=== PATIENT | male | born 1940 | race Caucasian/White ===

== ENCOUNTER 2021-02-01 19:36 | Inpatient (IN) | payer MEDICARE ==
[~2021-02-01] VITALS: Ht 172.7 cm; Wt 111.7 kg
[2021-02-01 21:48] LABS: Basophils # (auto) 0 10 ^3/uL (0-0.2); Basophils % (auto) 0.2 % (0.0-2.0); Eosinophils # (auto) 0 10 ^3/uL (0-0.8); Hematocrit 42.1 % (41.0-53.0); Hemoglobin 14.3 g/dL (13.5-17.5); Lymphocytes # (auto) 0.8 10 ^3/uL (0.4-5.4); Lymphocytes % (auto) 5.2 % (10.0-50.0); Mean Corpuscular Hemoglobin 32.7 pg (28.0-32.0); Mean Corpuscular Volume 96.2 fL (80.0-100.0); Monocytes # (auto) 0.7 10 ^3/uL (0-1.3); Monocytes % (auto) 4.6 % (0.0-12.0); Neutrophils # (auto) 14.1 10 ^3/uL (1.6-8.6); Platelet Count (auto) 196 10^3/uL (140-450); Red Blood Cells 4.37 10^6/uL (4.5-5.90); Red Cell Distribution Width 13.4 % (11.8-14.3); White Blood Cell 15.6 10^3/uL (4.4-10.8)
[2021-02-01 22:03] LABS: Albumin 3.4 g/dL (3.4-5.0); Anion Gap 10 (5-15); Blood Urea Nitrogen 11 mg/dL (7-18); Calcium 9.1 mg/dL (8.5-10.1); Carbon Dioxide 19 mmol/L (21-32); Chloride 105 mmol/L (98-107); Glucose 161 mg/dL (74-106); Magnesium 2.2 mg/dL (1.6-2.6); Potassium 3.3 mmol/L (3.5-5.1); Sodium 134 mmol/L (136-145)
[2021-02-01 22:08] LABS: INR 1.25 (0.9-1.15); Partial Thromboplastin Time 29.9 sec (23.0-31.2)
[2021-02-01 22:10] LABS: Alanine Aminotransferase 17 U/L (16-61); Alkaline Phosphatase 55 U/L (45-117); Aspartate Aminotransferase 8 U/L (15-37); BUN/Creatinine Ratio 12.1; Bilirubin, Total 1.4 mg/dL (0.2-1.0); GFR African American 103 mL/min; GFR Non-African American 85 mL/min; Total Protein 7.1 g/dL (6.4-8.2)
[2021-02-01 23:17] LABS: Urine Bacteria NONE SEEN /hpf (None Seen); Urine Blood 2+ /uL (Negative); Urine Mucus FEW (None Seen); Urine Specific Gravity 1.011 (1.001-1.035); Urine WBC 14 /hpf (0 - 3)
[2021-02-02] MEDS ORDERED: CIPROFLOXACIN 400MG/200ML 200 ML IV ONE (01:45)
[2021-02-02] MEDS ORDERED: ONDANSETRON HCL 4 MG/2 ML VIAL IV PRN (06:45)
[2021-02-02] MEDS ORDERED: POTASSIUM CHL 20 Meq TABLET PO ONE (06:45)
[2021-02-02] MEDS ORDERED: HYDROcodone-ACET 5/325MG TAB PO PRN (06:45)
[2021-02-02] MEDS ORDERED: MORPHINE SULF INJ 2 MG/ML SYRINGE 1ML IV PRN ×2 (06:45→13:15)
[2021-02-02] MEDS ORDERED: TEMAZEPAM 15 MG CAP PO PRN (06:45)
[2021-02-02] MEDS ORDERED: NITROGLYCERIN 0.4 MG SL TAB SL PRN (06:45)
[2021-02-02] MEDS ORDERED: MORPHINE SULFATE 4 MG/ML SYR/VIAL IV PRN (06:45)
[2021-02-02] MEDS ORDERED: DOCUSATE SOD 100 MG CAP PO PRN (06:45)
[2021-02-02] MEDS ORDERED: ACETAMINOPHEN 325 MG TAB PO PRN (06:45)
[2021-02-02] MEDS: MULTIPLE VITAMIN TAB PO SCH (10:00)
[2021-02-02] MEDS: ZINC SULFATE 220mg CAP or TAB PO SCH (10:00)
[2021-02-02] MEDS: FAMOTIDINE 20 MG TAB PO SCH ×2 (10:00→21:00)
[2021-02-02] MEDS: PIPERACILLIN-TAZOB 3.375GM 100 ML IV SCH ×3 (13:26→23:18)
[2021-02-02 14:00] VITALS: BP 155/76
[2021-02-02 15:47] LABS: Basophils # (auto) 0 10 ^3/uL (0-0.2); Basophils % (auto) 0.2 % (0.0-2.0); Eosinophils # (auto) 0 10 ^3/uL (0-0.8); Hematocrit 39.4 % (41.0-53.0); Lymphocytes # (auto) 1.4 10 ^3/uL (0.4-5.4); Mean Corpuscular Hemoglobin 33.6 pg (28.0-32.0); Mean Corpuscular Hgb Conc. 35.6 g/dL (32.0-36.0); Mean Corpuscular Volume 94.4 fL (80.0-100.0); Monocytes # (auto) 1.1 10 ^3/uL (0-1.3); Monocytes % (auto) 6.9 % (0.0-12.0); Neutrophils % (auto) 83.9 % (37.0-80.0); Nucleated Red Blood Cells % 0.1 %; Platelet Count (auto) 195 10^3/uL (140-450); Red Blood Cells 4.17 10^6/uL (4.5-5.90); Red Cell Distribution Width 13.6 % (11.8-14.3); White Blood Cell 15.5 10^3/uL (4.4-10.8)
[2021-02-02 16:01] LABS: Albumin 3.1 g/dL (3.4-5.0); Calcium 9.3 mg/dL (8.5-10.1); Potassium 3.9 mmol/L (3.5-5.1)
[2021-02-02 16:04] LABS: BUN/Creatinine Ratio 15.1; Bilirubin, Total 0.8 mg/dL (0.2-1.0); Total Protein 6.8 g/dL (6.4-8.2)
[2021-02-02 16:40] VITALS: BP 154/84
[2021-02-02 17:50] VITALS: BP 154/84
[2021-02-02] MEDS ORDERED: TAMSULOSIN HYDROCHLORIDE 0.4 MG CAP PO SCH (18:00)
[2021-02-02] MEDS ORDERED: BRIN1SUS EACHEYE (18:09)
[2021-02-02] MEDS ORDERED: TIMO0.5S66 EACHEYE (18:09)
[2021-02-02] MEDS ORDERED: LOSA100T33 PO (18:09)
[2021-02-02] MEDS ORDERED: LATA0.0019 EACHEYE (18:09)
[2021-02-02] MEDS ORDERED: ROSU10TA16 PO (18:09)
[2021-02-02] MEDS ORDERED: AML5T PO (18:09)
[2021-02-02 22:00] VITALS: BP 127/66
[2021-02-03 05:00] VITALS: BP 135/69
[2021-02-03] MEDS: PIPERACILLIN-TAZOB 3.375GM 100 ML IV SCH (05:17)
[2021-02-03 06:25] LABS: Basophils # (auto) 0 10 ^3/uL (0-0.2); Basophils % (auto) 0.3 % (0.0-2.0); Eosinophils # (auto) 0.1 10 ^3/uL (0-0.8); Eosinophils % (auto) 1.1 % (0.0-7.0); Hematocrit 39.1 % (41.0-53.0); Hemoglobin 13.6 g/dL (13.5-17.5); Lymphocytes # (auto) 1.8 10 ^3/uL (0.4-5.4); Mean Corpuscular Hgb Conc. 34.8 g/dL (32.0-36.0); Mean Corpuscular Volume 94.8 fL (80.0-100.0); Monocytes # (auto) 1.1 10 ^3/uL (0-1.3); Monocytes % (auto) 9.6 % (0.0-12.0); Neutrophils # (auto) 8.1 10 ^3/uL (1.6-8.6); Nucleated Red Blood Cells % 0.2 %; Platelet Count (auto) 184 10^3/uL (140-450); Red Blood Cells 4.12 10^6/uL (4.5-5.90); Red Cell Distribution Width 13.5 % (11.8-14.3); White Blood Cell 11.1 10^3/uL (4.4-10.8)
[2021-02-03 06:48] LABS: Calcium 8.6 mg/dL (8.5-10.1); Potassium 3.7 mmol/L (3.5-5.1)
[2021-02-03 06:50] LABS: BUN/Creatinine Ratio 15.4
[2021-02-03 06:53] LABS: Bilirubin, Total 0.9 mg/dL (0.2-1.0); Total Protein 6.6 g/dL (6.4-8.2)
[2021-02-03 09:00] VITALS: BP 156/67
[2021-02-03] MEDS: MULTIPLE VITAMIN TAB PO SCH (09:37)
[2021-02-03] MEDS: FAMOTIDINE 20 MG TAB PO SCH (09:37)
[2021-02-03] MEDS: ZINC SULFATE 220mg CAP or TAB PO SCH (09:37)
[2021-02-03] MEDS ORDERED: SULF400T11 PO (10:26)
[2021-02-03 11:17] VITALS: BP 156/67
== END 2021-02-03 11:55 | disposition home or self-care (01) | DRG 690 ==
LOC: ER 19:36 → EDBD 19:36 → TELE 19:37 → TELE-CENTR 02-02 13:03
PROVIDERS: ADMIT Nurse Practitioner Family; ATTEND Internal Medicine Pulmonary Disease
DX: N30.01 Acute cystitis with hematuria (principal); R07.89 Other chest pain; Z20.822 Contact with and (suspected) exposure to COVID-19; N40.1 Benign prostatic hyperplasia with lower urinary tract symptoms; N13.8 Other obstructive and reflux uropathy; E87.6 Hypokalemia; E78.5 Hyperlipidemia, unspecified; I10 Essential (primary) hypertension; I25.10 Atherosclerotic heart disease of native coronary artery without angina pectoris; N34.2 Other urethritis; Z86.73 Personal history of transient ischemic attack (TIA), and cerebral infarction without residual deficits; Z87.891 Personal history of nicotine dependence; Z79.899 Other long term (current) drug therapy
CPT/HCPCS: 36415; 71045; 74176; 80053; 81001; 83036; 83735; 83880; 84484; 85025; 85379; 85610; 85730; 87086; 87426; 93005; 94660; 96365; 96366; G0378; J2543

== ENCOUNTER → 2021-02-28 | Outpatient (CLI) | payer MEDICARE ==
[~2021-02-28] MED LIST: AML5T PO; BRIN1SUS EACHEYE; LATA0.0019 EACHEYE; LOSA100T33 PO; ROSU10TA16 PO; SULF400T11 PO; TIMO0.5S66 EACHEYE
[2021-02-28 15:41] LABS: Urine Blood Negative /uL (Negative); Urine Specific Gravity 1.015 (1.001-1.035)
== END | disposition home or self-care (01) ==
LOC: LAB 11:33
PROVIDERS: ATTEND Internal Medicine Cardiovascular Disease
DX: N39.0 Urinary tract infection, site not specified (principal)
CPT/HCPCS: 81003